=== PATIENT | male | born 1995 | race Caucasian/White ===

== ENCOUNTER 2018-03-30 15:49 | Emergency (ER) | payer OTHER ==
[~2018-03-30] VITALS: Ht 167.6 cm; Wt 121.2 kg
[2018-03-30 18:03] VITALS: BP 162/97; PULSE 113; RESP 20; Ht 167.6 cm; Wt 121.2 kg
[2018-03-30] MEDS ORDERED: LORAZEPAM 1 MG TAB PO ONE (18:30)
[2018-03-30] MEDS ORDERED: LORA1TAB PO (19:30)
--- NOTE | 2018-03-30 19:34 | ERD ---
ER Documentation Chief Complaint Chief Complaint Complains of feeling anxious Hx of Anxiety HPI 22-year-old male who presents feeling anxious. He has a history of anxiety and states he used to take citalopram but he no longer takes that. He had times feels short of breath and like there is something stuck in his throat. He is tolerating oral intake. No vomiting. No suicidal or homicidal ideations. ROS All systems reviewed and are negative except as per history of present illness. Medications Home Meds Active Scripts Lorazepam* (Lorazepam*) 1 Mg Tablet, 1 MG PO Q8, #10 TAB Prov:DE LA GARZAHIRA VALADEZ PA-C 03/30/18 Allergies Allergies: Coded Allergies: No Known Allergy (Unverified , 03/30/18) PMhx/Soc Medical and Surgical Hx: pt denies Surgical Hx Hx Miscellaneous Medical Probl: Yes (ANXIETY) FmHx Family History: No diabetes Physical Exam Vitals Vital Signs Date Temp Pulse Resp B/P (MAP) Pulse Ox O2 O2 Flow FiO2 Time Delivery Rate 03/30/18 98.9 113 20 162/97 96 18:03 (118) Physical Exam Const: No acute distress Head: Atraumatic Eyes: Normal Conjunctiva ENT: Normal External Ears, Nose and Mouth. Neck: Full range of motion. No meningismus. Resp: Clear to auscultation bilaterally Cardio: Regular rate and rhythm, no murmurs Results 24 hrs Current Medications Medications Dose Sig/Harris Start Time Status Last (Trade) Ordered Route PRN Stop Time Admin Dose Reason Admin Lorazepam 1 mg ONCE ONCE 03/30/18 DC 03/30/18 (Ativan) PO 18:30 18:15 03/30/18 18:31 Procedures/MDM Patient presents with anxiety. He has a history of anxiety. Chest x-ray negative. Patient given Ativan with improvement and discharged with a small amount of Ativan. Patient counseled regarding my diagnostic impression and care plan. Prior to discharge all questions answered. Pt agrees with treatment plan and understands strict return precautions. Pt is instructed to follow up with primary care provider within 24-48 hours. Precautionary instructions provided including instructions to return to the ER if not improving or for any worsening or changing symptoms or concerns. Departure Diagnosis: Primary Impression: Anxiety Condition: Stable Patient Instructions: Anxiety Reaction Additional Instructions: Call your primary care doctor TOMORROW for an appointment during the next 1-2 days.See the doctor sooner or return here if your condition worsens before your appointment time. HIRA DE LA GARZA PA-C Mar 30, 2018 19:33
== END 2018-03-30 19:48 | disposition home or self-care (01) ==
LOC: FTE 15:49
DX: F41.9 Anxiety disorder, unspecified (principal); R06.02 Shortness of breath
CPT/HCPCS: 71045; Z7502; Z7610

== ENCOUNTER 2018-11-08 22:34 | Emergency (ER) | payer OTHER ==
[~2018-11-08] VITALS: Ht 182.9 cm; Wt 125.8 kg
[~2018-11-08 22:34] MED LIST: ALPR0.5T PO; LORA1TAB PO
[2018-11-08 22:48] VITALS: Ht 182.9 cm; Wt 125.8 kg
[2018-11-08] MEDS ORDERED: LORAZEPAM 2 MG INJ IV ONE (23:30)
[2018-11-08] MEDS ORDERED: SOD CHLORIDE 0.9% 1,000 ML IV STA (23:30)
--- NOTE | 2018-11-09 00:40 | ERD ---
ER Documentation Chief Complaint Chief Complaint MULTIPLE ATTACKS, C/O CP AND HTN HPI Is a 23-year-old male comes in setting with multiple panic attacks today. He says happens after he binge drinks alcohol. He managed drank alcohol over the past 3 days. Denies any fevers chills nausea vomiting. Denies focal neurological complaints. Denies suicidal homicidal ideation. ROS All systems reviewed and are negative except as per history of present illness. Medications Home Meds Active Scripts Alprazolam* (Xanax*) 0.5 Mg Tab, 0.5 MG PO Q8H PRN for ANXIETY, #14 TAB Prov:MELISSA ROSA 11/09/18 Discontinued Scripts Lorazepam* (Lorazepam*) 1 Mg Tablet, 1 MG PO Q8, #10 TAB Prov:HIRA DE LA GARZA PA-C 03/30/18 Allergies Allergies: Coded Allergies: No Known Allergy (Unverified , 11/09/18) PMhx/Soc Medical and Surgical Hx: pt denies Surgical Hx Hx Neurological Disorder: No Hx Respiratory Disorders: No Hx Cardiac Disorders: No Hx Psychiatric Problems: No Hx Miscellaneous Medical Probl: Yes (ANXIETY) Hx Alcohol Use: Yes (EVERY DAY ) Hx Substance Use: No Hx Tobacco Use: No Smoking Status: Never smoker Physical Exam Vitals Vital Signs Date Temp Pulse Resp B/P (MAP) Pulse Ox O2 O2 Flow FiO2 Time Delivery Rate 11/08/18 107 18 162/101 99 Room Air 23:19 (121) 11/08/18 99.2 125 24 170/107 96 22:48 (128) Physical Exam Const: No acute distress Head: Atraumatic Eyes: Normal Conjunctiva ENT: Normal External Ears, Nose and Mouth. Neck: Full range of motion. No meningismus. Resp: Clear to auscultation bilaterally Cardio: Regular rate and rhythm, no murmurs Abd: Soft, non tender, non distended. Normal bowel sounds Skin: No petechiae or rashes Back: No midline or flank tenderness Ext: No cyanosis, or edema Neur: Awake and alert Psych: Normal Mood and Affect Result Diagram: 11/08/18 0286 11/08/18 2336 Results 24 hrs Laboratory Tests Test 11/08/18 23:36 White Blood Count 8.2 10^3/ul Red Blood Count 5.05 10^6/ul Hemoglobin 15.2 g/dl Hematocrit 44.4 % Mean Corpuscular Volume 87.9 fl Mean Corpuscular Hemoglobin 30.1 pg Mean Corpuscular Hemoglobin Concent 34.2 g/dl Red Cell Distribution Width 12.0 % Platelet Count 372 10^3/UL Mean Platelet Volume 9.1 fl Immature Granulocytes % 0.400 % Neutrophils % 67.7 % Lymphocytes % 18.7 % Monocytes % 10.0 % Eosinophils % 2.8 % Basophils % 0.4 % Nucleated Red Blood Cells % 0.0 /100WBC Immature Granulocytes # 0.030 10^3/ul Neutrophils # 5.6 10^3/ul Lymphocytes # 1.5 10^3/ul Monocytes # 0.8 10^3/ul Eosinophils # 0.2 10^3/ul Basophils # 0.0 10^3/ul Nucleated Red Blood Cells # 0.0 10^3/ul Sodium Level 138 mmol/L Potassium Level 4.2 mmol/L Chloride Level 100 mmol/L Carbon Dioxide Level 28 mmol/L Anion Gap 10 Blood Urea Nitrogen 14 mg/dl Creatinine 1.49 mg/dl Est Glomerular Filtrat Rate mL/min 58 mL/min Glucose Level 98 mg/dl Calcium Level 9.3 mg/dl Total Bilirubin 0.5 mg/dl Direct Bilirubin 0.00 mg/dl Indirect Bilirubin 0.5 mg/dl Aspartate Amino Transf (AST/SGOT) 48 IU/L Alanine Aminotransferase (ALT/SGPT) 42 IU/L Alkaline Phosphatase 115 IU/L Troponin I < 0.012 ng/ml B-Type Natriuretic Peptide < 11 PG/ML Total Protein 8.1 g/dl Albumin 4.6 g/dl Globulin 3.50 g/dl Albumin/Globulin Ratio 1.31 Lipase 159 U/L Current Medications Medications Dose Sig/Harris Start Time Status Last (Trade) Ordered Route PRN Stop Time Admin Dose Reason Admin Sodium 1,000 ml @ Q1H STAT 11/08/18 DC 11/08/18 Chloride 1,000 mls/hr IV 23:30 11/09/18 23:41 00:29 Lorazepam 2 mg ONCE ONCE 11/08/18 DC 11/08/18 (Ativan) IV 23:30 11/08/18 23:41 23:32 Procedures/MDM EKG: Rate/Rhythm: [Normal Sinus Rhythm] QRS, ST, T-waves: [No changes consistent w/ acute ischemia] Impression: [No evidence of ischemia or arrhythmia] Chest X-ray 1V Interpreted by me: Soft Tissue: No acute abnormalities Bones: No acute abnormalities Mediastinum/Cardiac Silhouette/Lungs: [No acute abnormalities] Patient's thoracic symptoms have stabilized while in the department and are stable for outpatient follow up. Exam and work up not consistent w/ ischemia, arrhythmia, PE or dissection. Departure Diagnosis: Primary Impression: Anxiety attack Condition: Stable Patient Instructions: Anxiety Reaction MELISSA ROSA Nov 09, 2018 00:40
[2018-11-09 00:42] VITALS: BP 150/89; PULSE 110; RESP 18
== END 2018-11-09 00:55 | disposition home or self-care (01) ==
LOC: E/R 22:34
DX: F41.9 Anxiety disorder, unspecified (principal); R40.2142 Coma scale, eyes open, spontaneous, at arrival to emergency department; R40.2362 Coma scale, best motor response, obeys commands, at arrival to emergency department; R40.2252 Coma scale, best verbal response, oriented, at arrival to emergency department; I10 Essential (primary) hypertension
CPT/HCPCS: 36415; 71045; 80053; 83690; 83880; 84484; 85025; 93005; 96374; J2060; J7030; Z7502